=== PATIENT | male | born 1990 | race African-American/Black ===

== ENCOUNTER 2021-05-15 10:33 | Emergency (ER) | payer SELFPAY ==
[2021-05-15] MEDS ORDERED: Ketorolac Tromethamine 30 MG/ML VIAL ONE (11:31)
== END 2021-05-15 11:40 | disposition home or self-care (01) ==
LOC: CSHERS 10:33
DX: K02.9 Dental caries, unspecified (principal); K04.7 Periapical abscess without sinus; I10 Essential (primary) hypertension; F17.210 Nicotine dependence, cigarettes, uncomplicated
CPT/HCPCS: 96372; 99282; J1885

== ENCOUNTER 2021-11-14 17:32 | Emergency (ER) | payer SELFPAY ==
[2021-11-14] MEDS ORDERED: Aspirin Chewable 81 MG TAB ONE (18:13)
[2021-11-14] MEDS ORDERED: Acetaminophen 500 MG TAB ONE (18:14)
== END 2021-11-14 18:49 | disposition home or self-care (01) ==
LOC: CSHERS 17:32
DX: R07.2 Precordial pain (principal); R05.9 Cough, unspecified; R00.1 Bradycardia, unspecified; I10 Essential (primary) hypertension; J45.909 Unspecified asthma, uncomplicated; F17.210 Nicotine dependence, cigarettes, uncomplicated
CPT/HCPCS: 71045; 93005

== ENCOUNTER 2025-04-17 15:25 | Emergency (ER) | payer SELFPAY ==
[2025-04-17] MEDS ORDERED: Ibuprofen 800 MG TAB ONE (16:20)
[2025-04-17] MEDS ORDERED: Acetaminophen 325 MG TAB ONE (16:20)
== END 2025-04-17 16:46 | disposition home or self-care (01) ==
LOC: CSHERS 15:25
DX: B34.9 Viral infection, unspecified (principal); I10 Essential (primary) hypertension; F17.210 Nicotine dependence, cigarettes, uncomplicated
CPT/HCPCS: 71045; 87081; 87428; 87430